=== PATIENT | male | born 1950 | race Caucasian/White ===

== ENCOUNTER 2017-01-06 16:27 | Emergency (ER) | payer BC ==
[~2017-01-06] VITALS: Ht 190.5 cm; Wt 90.9 kg
[~2017-01-06 16:27] MED LIST: ASPIRIN 81M81 MG/TA2 PO; LIPITOR 80MG80 MG PO; NORCO 325 MG-51 TAB PO; NORVASC 5MG5 MG/TAB PO; ZETIA 10MG TAB10 MG PO
[2017-01-06 16:32] VITALS: TEMP 99.5
[2017-01-06] MEDS ORDERED: ULTRAM 50MG TAB50 MG PO (17:58)
[2017-01-06] MEDS ORDERED: PERCOCET 325 MG1 TA2 PO (17:58)
[2017-01-06 18:31] VITALS: BP 132/84; PULSE 84
[2017-01-07] MEDS ORDERED: NORCO 325 MG-51 TAB PO (07:28)
== END 2017-01-06 18:32 | disposition home or self-care (01) ==
LOC: COL.ER 16:27
DX: S70.311A Abrasion, right thigh, initial encounter (principal); M25.572 Pain in left ankle and joints of left foot; W01.0XXA Fall on same level from slipping, tripping and stumbling without subsequent striking against object, initial encounter

== ENCOUNTER 2017-01-07 12:14 | Emergency (ER) | payer BC ==
[~2017-01-07] VITALS: Ht 190.5 cm; Wt 90.9 kg
[~2017-01-07 12:14] MED LIST changes: +PERCOCET 325 MG1 TA2 PO; +ULTRAM 50MG TAB50 MG PO
[2017-01-07 12:16] VITALS: BP 152/70; PULSE 62; TEMP 98.5
== END 2017-01-07 12:55 | disposition home or self-care (01) ==
LOC: COL.ER 12:14
DX: S92.002A Unspecified fracture of left calcaneus, initial encounter for closed fracture (principal); X58.XXXA Exposure to other specified factors, initial encounter